=== PATIENT | female | born 1960 | race Caucasian/White ===

== ENCOUNTER 2017-04-13 10:02 | Inpatient (IN) | payer OTHER ==
[~2017-04-13] VITALS: Ht 152.4 cm; Wt 84.4 kg
[2017-04-13 10:18] VITALS: BP 114/37
[2017-04-13] MEDS ORDERED: CAPTOPRIL5 GM PO (11:26)
[2017-04-13] MEDS ORDERED: LASIX 10 MG/10 MG/M1 PO (11:27)
[2017-04-13] MEDS ORDERED: TOPROL XL100 MG PO (11:27)
[2017-04-13] MEDS ORDERED: NORVASC2.5 MG PO (11:27)
[2017-04-13] MEDS ORDERED: ACCUNEB SO1.25 MG/1 INH (11:27)
[2017-04-13] MEDS ORDERED: KLOR-CON 1010 MEQ PO (11:28)
[2017-04-13] MEDS ORDERED: FLOVENT HFA 4444 MCG INH (11:28)
[2017-04-13] MEDS ORDERED: ASPIRIN81 M2 PO (11:28)
[2017-04-13 11:48] LABS: BE -1.9 mmol/L (-2 to +3); HCO3 23.3 mmol/L (22.0-26.0); PCO2 41.4 mmHg (35.0-45.0); PO2 75.2 mmHg (75.0-100.0); pH 7.368 (7.340-7.450)
[2017-04-13 12:39] LABS: ABSOLUTE EOSINOPHILS 0.2 thou/uL (0.0-0.7); ABSOLUTE LYMPHOCYTES 0.5 thou/uL (0.8-5.3); ABSOLUTE MONOCYTES 0.3 thou/uL (0.0-1.2); ABSOLUTE NEUTROPHILS 2.9 thou/uL (1.6-8.1); BASOPHILS 0.5 %; EOSINOPHILS 4.4 %; HEMATOCRIT 42.9 % (37.0-47.0); HEMOGLOBIN 14.2 gm/dL (12.0-15.0); LYMPHOCYTES 12.4 %; MCH 27.9 pg (26.0-34.0); MCHC 33.1 g/dL (28.0-37.0); MCV 84.4 fL (80.0-100.0); MONOCYTES 8.5 %; MPV 9.1 fl. (7.2-11.1); NUCLEATED RBCS 0 /100WBC; PLATELET COUNT* 104 thou/uL (150-400); POLYS 74.2 %; RBC 5.08 mil/uL (4.20-5.00); WBC 3.9 thou/uL (4.0-11.0)
[2017-04-13 13:05] LABS: ANION GAP 5 mmol/L (7-16); BUN 15 mg/dL (7-18); CALCIUM 9.4 mg/dL (8.5-10.1); CHLORIDE 104 mmol/L (98-107); CO2 29 mmol/L (21-32); CREATININE 1.2 mg/dL (0.6-1.3); GLUCOSE 90 mg/dL (70-99); POTASSIUM 3.7 mmol/L (3.5-5.1); SODIUM 138 mmol/L (136-145)
[2017-04-13 13:16] LABS: ALBUMIN 3.9 g/dL (3.4-5.0); ALKALINE PHOSPHATASE 171 U/L (46-116); NT-PRO BRAIN NAT PEPTIDE 159 pg/mL (<300); SGOT 24 U/L (15-37); SGPT 37 U/L (30-65); TOTAL BILIRUBIN 1.1 mg/dL (<0.1-1.0); TOTAL PROTEIN 7.3 g/dL (6.4-8.2); TROPONIN-I LEVEL <0.06 ng/mL (<0.06)
[2017-04-13 13:17] LABS: URINE BILIRUBIN NEGATIVE (Negative); URINE BLOOD TRACE (Negative); URINE CLARITY CLEAR; URINE COLOR YELLOW; URINE GLUCOSE-RANDOM NEGATIVE (Negative); URINE KETONES NEGATIVE (Negative); URINE LEUKOCYTES-REFLEX TRACE (Negative); URINE NITRITE-REFLEX NEGATIVE (Negative); URINE PROTEIN NEGATIVE (Negative); URINE UROBILINOGEN 0.2 E.U./dl (0.2-1.0)
[2017-04-13 13:36] LABS: URINE WBC-REFLEX 0-5 Rare /HPF (0-5)
[2017-04-13 13:37] LABS: URINE RBC None Seen /HPF (0-2)
[2017-04-13 13:38] LABS: SQUAMOUS 4-10 Moderate /LPF (0-3)
[2017-04-13 13:39] LABS: BACTERIA-REFLEX None Seen /HPF (None Seen); MUCUS 0-3 Light strn/LPF (None Seen)
[2017-04-13 13:40] LABS: CASTS None Seen /LPF (None Seen); CRYSTALS None Seen /LPF (None Seen)
[2017-04-13 16:01] LABS: APTT 26.3 Seconds (25.0-31.3)
--- NOTE | 2017-04-13 16:14 | NUR ---
PT CARE BEING TAKEN OVER BY STOREKEEPER STEWARD FOR DRAINAGE OF PLEURAL EFFUSION.
[2017-04-13 17:43] LABS: BF RBC 3560 /mm3; TOTAL CELL COUNT 675 /mm3
[2017-04-13 17:46] LABS: CLARITY SLIGHTLY HAZY; COLOR BROWN; TOTAL VOLUME 1865 ml
[2017-04-13 18:43] VITALS: BP 137/78
[2017-04-13 18:52] LABS: BF POLYS 7 %; SOURCE THORACENTESIS
[2017-04-13 18:53] LABS: BF LYMPHOCYTES 91 %; BF MONOCYTES 2 %
--- NOTE | 2017-04-13 19:00 | NUR ---
PT. ARRIVED ON UNIT AFTER RECEIVING REPORT FROM [employer]ING GENERAL SUPERINTENDENT. PT. A/OX4, VSS, MONITOR PLACED. PT ORIENTED TO ROOM/CALL LIGHT. PT. HAS NOT EATEN TODAY, BOX LUNCH GIVEN. FAMILY AT BEDSIDE. REPORT GIVEN TO BRENDA ANTONY TO COMPLETE ADMISSION PROCESS.
[2017-04-13 20:00] VITALS: BP 127/73
[2017-04-13 20:05] VITALS: BP 138/75
[2017-04-13] MEDS ORDERED: TRAMADOL 50 MG50 MG PO (21:57)
[2017-04-14 00:03] VITALS: BP 116/74
[2017-04-14 04:11] VITALS: BP 143/78
--- NOTE | 2017-04-14 05:18 | NUR ---
ASSUMED PT CARE AT 1930, PT IS A&OX4, PT HAD A THORACENTESIS IN ER, TO THE RIGHT SIDE, DRESSING IS CDI. PT IS TRACING NSR ON THE MONITOR, ON 2L NC SATTING MID TO HIGH 90'S. PT DENIES ANY PAIN OR NEEDS AT THIS TIME. ADMISSION ASSESSMENT COMPLETED CHARTED, HOME MEDICATIONS RESTARTED. PT IS RESTING AT THIS TIME. PRIOR TO ADMISSION PT HAD FALLEN AND NOW HAS A T 11 COMPRESSION FRACTURE, BED IN LOW POSITION, CALL LIGHT IN REACH, BED ALARM ON, YELLOW ARM BAND AND SOCKS IN PLACE, HOURLY ROUNDING COMPLETED FOR PT SAFETY.
[2017-04-14 08:00] VITALS: BP 117/64
--- NOTE | 2017-04-14 09:02 | NUR ---
ASSUMED PT. CARE AND RECEIVED RPEORT AT 0730. PT A/OX4, VSS, MONITOR ON TRACING SR. PT. ON 2L NC @ 96%. PT. STATES SHE "FEELS LIKE THERE IS RATTLING" IN HER LUNGS STILL. FULL ASSESSMENT COMPLETED, REFER TO CHARTING. REPORTS PAIN TO BACK 05/04. PT. FULL ASSESSMENT COMPLETED, REFER TO CHARTING. PT. SITTING UP IN BED, READY TO EAT BREAKFAST. CALL LIGHT IN REACH, WILL CONTINUE WITH PLAN OF CARE.
[2017-04-14 12:34] VITALS: BP 106/55
--- NOTE | 2017-04-14 19:05 | NUR ---
PT. STABLE THROUGH OUT SHIFT. TREATED FOR PAIN X 2 WITH TRAMADOL, TOLERATED WELL WITH GOOD RELIEF. PT. ABLE TO AMBULATE AND SHOWER INDEPENDENTLY TODAY, STEADY ON FEET. O2 REMOVED PER PT. REQUEST. HOURLY ROUNDING COMPLETED THROUGH OUT THE DAY FOR PT. SAFETY.
[2017-04-14 20:00] VITALS: BP 101/48
[2017-04-15] VITALS: BP 106/52
[2017-04-15 04:00] VITALS: BP 103/45
--- NOTE | 2017-04-15 04:30 | NUR ---
ASSUMED PT CARE AT 1930, PT IS A&OX4, PT IS TRACING NSR ON THE MONITOR, ON 2L NC SATTING MID TO LOW 90'S. PT DENIES ANY PAIN OR NEEDS AT THIS TIME. PT IS UP STB TO THE BR. PT SLEPT THROUGHOUT THE NIGHT. BED IN LOW POSITION, CALL LIGHT IN REACH, BED ALARM ON, YELLOW ARM ABND AND SOCKS IN PLACE, HOURLY ROUNDING COMPLETED FOR PT SAFETY.
[2017-04-15 08:00] VITALS: BP 96/48
[2017-04-15 09:07] LABS: BODY FLUID AMYLASE 88 U/L (()); BODY FLUID LDH 112 IU/L (()); BODY FLUID PROTEIN 4.7 g/dL (())
[2017-04-15 10:27] LABS: SOURCE THORACENTESIS
--- NOTE | 2017-04-15 10:27 | NUR ---
ASSUMED CARE OF PT AT 0730 AND RECIEVED REPORT FROM BRENDA. PT A/OX4, VITAL SIGNS STABLE. SINUS RHYTHM ON MONITOR. PT ON 2L NASAL CANNULA @ 93%. FULL ASSESSMENT COMPLETED. PT GOALS DISCUSSED TO GET UP IN CHAIR. PT LEFT SITTING IN BED WITH CALL LIGHT AND PERSONAL BELONGINGS IN REACH. RESPIRATORY THERAPY D/C O2. IV D/C DUE TO INFILTRATION.
[2017-04-15 11:15] VITALS: BP 106/56
[2017-04-15 11:44] LABS: HEMATOCRIT 38.3 % (37.0-47.0); HEMOGLOBIN 12.8 gm/dL (12.0-15.0); MCH 28.4 pg (26.0-34.0); MCHC 33.4 g/dL (28.0-37.0); MCV 85.1 fL (80.0-100.0); MPV 9.1 fl. (7.2-11.1); NUCLEATED RBCS 0 /100WBC; PLATELET COUNT* 109 thou/uL (150-400); RDW-CV 15.1 % (10.5-14.5); WBC 3.7 thou/uL (4.0-11.0)
[2017-04-15 11:57] LABS: ABSOLUTE EOSINOPHILS 0.3 thou/uL (0.0-0.7); ABSOLUTE LYMPHOCYTES 0.3 thou/uL (0.8-5.3); ABSOLUTE MONOCYTES 0.2 thou/uL (0.0-1.2); ABSOLUTE NEUTROPHILS 2.9 thou/uL (1.6-8.1); ANISOCYTOSIS 1+; PLATELET ESTIMATE DECREASED
[2017-04-15 13:08] LABS: BODY FLUID PH 7.8 (Not Estab.)
[2017-04-15 15:35] VITALS: BP 96/55
[2017-04-15 15:43] VITALS: BP 96/55
--- NOTE | 2017-04-15 16:03 | NUR ---
SPOKE WITH PT.AND . HER FATHER WAS THERE ALSO. SHE SAID SHE DID NOT FEEL SHE WOULD HAVE ANY DISCHARGE NEEDS. SHE LIVES WITH HER . SHE IS INDEPENDENT AND ACTIVE. SHE USES NO DME. NO HX OF SNF OR HH. CM WILL FOLLOW FOR ANY DISCHARGE NEEDS.
--- NOTE | 2017-04-15 16:59 | NUR ---
PT OK FOR DISCHARGE FROM ALL CONSULTS AFTER REST AND EXCERCISE ON RA. PT O2 SATURATION WAS 92% DURING REST AND EXCERCISE. PT RECIEVED PAIN MEDICATION BEFORE LEAVING. PT DISCHARGE PAPERWORK GONE OVER AND PT LEFT WITH ALL BELONGIINGS AND .
--- NOTE | 2017-04-16 10:56 | CON ---
[address] [address] CONSULTATION Name: MARLON SERRANO Room: [address] IN M.R.#: [id number] Admission: 04/13/17 Attend Phys: Bear Staley, Discharge: 04/15/17 Date of : 56 Report #: [id number] THIS REPORT FOR: //name// CC: Elisa Staley DATE OF SERVICE: 04/14/2017 CHIEF COMPLAINT: Pleural effusion. HISTORY OF PRESENT ILLNESS: The patient is a 56-year-old female who is a lifelong nonsmoker. She does not have or admit to any respiratory problems or disorders. She gives me history stating that 1 week ago today, she slipped and fell outside of her home on a concrete slab. She developed pain in her lower back. She went to the doctor on of this past week. X-rays of her lumbar spine were performed at [facility]. Because of a fluid being present on the left side, she underwent a chest x-ray. She was advised to come to the Emergency Room, which she did on Saturday. She was admitted to the hospital. Yesterday, she underwent a thoracentesis. Approximately, 1600 mL of pleural fluid removed from the pleural space. The fluid was sent for chemistry evaluation and cell count. According to the patient, she had been noticing some shortness of breath, dating back to 01/2017. She thought maybe it was related to an upper respiratory infection. Unfortunately, she continued to have shortness of breath. She had not noticed any other symptomatology other than shortness of breath, especially when it was real cold with temperatures below 30 degrees or so. In addition, she had had exertional short windedness. She was given an inhaler at one point, but she did not notice or feel any relief from that inhaler device. According to the patient, she has not had any abdominal bloating, fullness. She denies pain in her abdomen or chest. She denies headache, blurred vision, numbness, tingling. She denies calf tenderness. She has not had any swelling, nausea, vomiting. ALLERGIES: SHE IS ALLERGIC TO PENICILLIN. FAMILY HISTORY: Positive for breast cancer in her grandmother as well as her mother. The patient does get routine mammograms. She has not had a colonoscopy. SOCIAL HISTORY: [place] [address] CONSULTATION Name: MARLON SERRANO Room: [address]#: [id number] Admission: 04/13/17 Attend Phys: Bear Staley, Discharge: 04/15/17 Date of : 56 Report #: [id number] PAST MEDICAL HISTORY: Significant for hypertension. REVIEW OF SYSTEMS: System review negative other than what is outlined above. CURRENT MEDICATIONS: Lisinopril, Lasix, aspirin, amlodipine, tramadol, Flonase nasal spray, Lovenox, captopril. PHYSICAL EXAMINATION: VITAL SIGNS: Blood pressure 143/78, respiratory rate 18, nonlabored, pulse rate 85, regular, temperature 98.4 degrees. Her weight 181 pounds. GENERAL APPEARANCE: Awake, alert. She is oriented. HEENT: Head atraumatic. EYES: Pupils are round, equal, reactive. Sclerae and conjunctivae are clear. Extraocular muscles intact. NOSE: Nasal passages are patent. SKIN: Surface is normal without abnormalities. There is no deviation noted. EARS: No drainage from the auditory canals. Structures appear normal, otherwise. NECK: No adenopathy or JVD. CHEST: Dullness in the right base. Diminished breath sounds in the right base, otherwise breath sounds are clear and symmetrical. CARDIOVASCULAR: Regular rhythm. ABDOMEN: Obese without organomegaly, no tenderness with deep palpation. Inguinal area free of adenopathy. EXTREMITIES: No edema or calf tenderness. There is no evidence of cyanosis or clubbing. SKIN: Warm and dry. No rash. NEUROLOGIC: Moves all 4 extremities spontaneously. Strength equal bilaterally. LABORATORY DATA: Pleural fluid reveals brownish color, red cells 3560. Chemistry is pending. Electrolytes: Sodium 138, potassium 3.7, chloride 104, CO2 29, BUN 15, creatinine 1.2. Total bilirubin 1.1. Liver enzymes are normal. ProBNP 159 on admission. Troponins are less than 0.06. INR 1.0. Hemoglobin and hematocrit are 14 and 43 with a white count of 3900, platelet count 104,000. Arterial blood gas on room air, pH 7.37, pCO2 41, pO2 75, bicarbonate 23. MEDICAL IMAGING STUDIES: CTA of the chest performed on 04/13/2017 was interpreted showing large right pleural effusion, partial collapse left lower lobe. There was no evidence of mediastinal or hilar adenopathy. No adenopathy in the axilla. Pulmonary arteries were free of filling defects. Upper abdomen demonstrated retroperitoneal adenopathy with numerous enlarged lymph nodes, spleen measures 15.2 cm in length. IMPRESSION: 1. Pleural effusion, probably exudative in nature. 2. Abnormal CT of the chest, specifically of the [place] [address] CONSULTATION Name: MARLON SERRANO Room: [address] IN [facility]#: [id number] Admission: 04/13/17 Attend Phys: Bear Staley, Discharge: 04/15/17 Date of : 56 Report #: [id number] splenomegaly and retroperitoneal adenopathy. 3. Recent fall. RECOMMENDATION: The patient has already undergone a thoracentesis. We will ask lab whether they have enough fluid to proceed with cytology evaluation and flow cytometry. Discussed with the patient the above findings. We will go ahead and obtain a CT of the abdomen and pelvis. Follow up chest x-ray will be obtained as well, mainly to determine if there is any significant residual fluid present on the right side. ADDENDUM: The lymphadenopathy, splenomegaly, pleural effusion could reflect an underlying malignant process from a lymphatic standpoint. <ELECTRONICALLY SIGNED> By: Johan Norman MD 04/16/17 1056 [id number] Valdez MD /nt
--- NOTE | 2017-05-02 13:10 | CNG ---
[address] [address] CYTO-NONGYN REPORT PROCEDURE Name: MARLON LANCE Room: [address]#: [id number] Admission: 04/13/17 Date of : 56 Discharge: 04/15/17 Report #: [id number] Path Case #: [id number] CYTOPATHOLOGY REPORT COLLECTION DATE: 04/13/2017 RECEIVED DATE: 04/15/2017 SUBMITTING PHYS: Dr. Jack Norwood OTHER PHYS: Dr. Elisa Staley CLINICAL HISTORY: Pleural effusion with shortness of air SPECIMEN(S) RECEIVED: A.Pleural fluid, Right * * * * * * * * * * * * FINAL DIAGNOSIS: A. Pleural fluid, Right: - No overt malignant cells identified. Few mesothelial cells and small, mature-appearing lymphocytes are present. See comment. COMMENT: At the request of Dr. Lorie Stahl, flow cytometry is pending on a sample of the pleural fluid because of a clinical suspicion of lymphoma, the results of which will be the subject of an addendum report. (FRANCIS:estevan; 04/17/2017) PATHOLOGIST: Byron Ortiz M.D. REPORT ELECTRONICALLY SIGNED BY: Byron Ortiz M.D. DATE/TIME: 04/17/2017 16:32 * * * * * * * * * * * * GROSS PATHOLOGY: A. Pleural fluid, Right: The specimen is submitted unfixed, labeled "Marlon Lance". Received by the Cytology Department is 58 mL of cloudy yellow fluid. One ThinPrep slide and a formalin fixed cell block were prepared. Specimen sent for flow cytometry. (mm 04.15.2017) FREIGHT SHIPPING AGENT(S): KENNY Tong(ASCP) INITIAL CPT CODE(S): A; 67668, 43975 Professional services performed [place] [facility] [place] [address] Technical services performed by [facility] at [address] [place] [address] CYTO-NONGYN REPORT PROCEDURE Name: MARLON LANCE Room: [address]#: [id number] Admission: 04/13/17 Date of : 56 Discharge: 04/15/17 Report #: [id number] Path Case #: [id number] [place] [address]. PROCEDURE REPORT (Order Date: 04/16/2017 00:00) COMMENT: Special studies report received from [facility], [address] [place] [address], [address], [place], [address], on case [id number], labeled with their number [id number], dated 04/16/2017. Flow Cytometry: Hematologic Neoplasia Assessment Clinical History Pleural effusion Indication for Study Evaluation for hematolymphoid neoplasia Specimen Fluid, Right Pleural Effusion Viability 9% (7AAD exclusion) Interpretation Fluid, Right Pleural Effusion: - No definitive immunophenotypic evidence of non-Hodgkin lymphoma in a sample with markedly decreased viability (9%). See comment. - Inverted T cells CD4:CD8 ratio. Comments This sample is less than 50% viable which is considered suboptimal for routine clinical flow cytometry analysis. The analysis, however, is being reported because the sample is considered irreplaceable. These results must be interpreted in the context of all available clinical, laboratory, and morphologic information. Populations Analyzed Lymphocytes: 5% B-cells: 0.4%, polytypic/polyclonal sIg light chain pattern T-cells: no significant abnormalities of the markers tested CD4:CD8: 0.0 (inverted) NK cells: 0.7% CD45 Negative 95% No significant reactivity with the markers tested (may represent Events/Debris: non-hematolymphoid cells, degenerated cells, debris, unlysed red blood cells, etc.) Morphologic Evaluation A slide was reviewed for quality assurance inspector purposes only. Specimen Description Total Cell Yield: 0.86 X 10^6 Reagent(s) Used CD2, CD3, CD4, CD5, CD7, CD8, CD10, CD11b, CD19, CD20, CD23, CD30, CD38, CD43, CD45, CD56, CD57, FMC-7, HLA-DR, kappa, lambda at [employer], [employer] [address] CYTO-NONGYN REPORT PROCEDURE Name: MARLON LANCE Room: [address] IN [facility].#: [id number] Admission: 04/13/17 Date of : 56 Discharge: 04/15/17 Report #: [id number] Path Case #: [id number] Pathologist Intended Use Flow cytometry is optimally used to immunophenotypically characterize abnormal populations when they are detected. Negative flow cytometry results do not exclude lymphoma or neoplasia. Possible false negative flow cytometry results may occur in, but are not limited to, the following: neoplastic cells in Hodgkin lymphoma are not typically adequately represented by routine clinical flow cytometry; neoplastic cells may be lost or inadequately represented due to degeneration, sample processing, sampling artifact, or patchy involvement; plasma cells are typically underrepresented by flow cytometry; immature cells/blasts may be underrepresented due to hemodilution; myeloproliferative disorders and low grade myelodysplasia may not have immunophenotypic abnormalities or increased blasts. Correlation with all available clinical, laboratory, and morphologic data is always necessary to assess for the possibility of false negative flow cytometry results and to establish a diagnosis. Each marker in this analysis was used to assess for potential antigenic abnormalities or to evaluate detected abnormalities. Disclaimer(s) This test was performed at [facility] at [address], [place], [address] - Practice Physician: Johny Harris MD. [facility] is a business unit of [facility] a wholly-owned subsidiary of [employer]. Any image or images that accompany this report are used equipment sales representative images only and should not be used to render a diagnosis. This test was developed and its performance characteristics determined by [facility]. It has not been cleared or approved by the Food and Drug Administration (FDA). The FDA has determined that such clearance or approval is not necessary. For inquiries, the physician may contact Lab: [phone] A complete copy of the report is on file. Professional services performed by [facility] at [address], [place] [address]. Technical services performed by [facility] at [address], [place] [address]. (AMJ 04/17/2017) PATHOLOGIST: Sakina Dennis M.D. REPORT ELECTRONICALLY SIGNED BY: Sakina Dennis M.D. DATE/TIME: 05/02/2017 13:10 [facility] [address] [facility], [address] [place] [address] PHONE: [phone] DIRECTOR: Frankie Perez M.D. * * * END OF REPORT * * *
== END 2017-04-15 16:30 | disposition home or self-care (01) | DRG 186 ==
LOC: M.ERS 10:02 → M.TBA-ER 15:40 → M.2W 15:40
PROVIDERS: Personal Emergency Response Attendant; ADMIT Family Medicine
PROC: 0W993ZZ Drainage of Right Pleural Cavity, Percutaneous Approach (ICD-10-PCS; principal; 2017-04-13)
DX: J90 Pleural effusion, not elsewhere classified (principal); J96.91 Respiratory failure, unspecified with hypoxia; J98.11 Atelectasis; R16.1 Splenomegaly, not elsewhere classified; R59.9 Enlarged lymph nodes, unspecified; I10 Essential (primary) hypertension; J45.909 Unspecified asthma, uncomplicated; Z88.0 Allergy status to penicillin; Z88.8 Allergy status to other drugs, medicaments and biological substances; Z90.49 Acquired absence of other specified parts of digestive tract; Z79.51 Long term (current) use of inhaled steroids; Z79.82 Long term (current) use of aspirin; Z79.899 Other long term (current) drug therapy

== ENCOUNTER 2017-07-05 07:49 | Outpatient (CLI) | payer OTHER ==
[~2017-07-05] VITALS: Ht 152.4 cm; Wt 81.2 kg
[~2017-07-05 07:49] MED LIST: ACCUNEB SO1.25 MG/1 INH; ASPIRIN81 M2 PO; CAPTOPRIL5 GM PO; FLOVENT HFA 4444 MCG INH; KLOR-CON 1010 MEQ PO; LASIX 10 MG/10 MG/M1 PO; NORVASC2.5 MG PO; TOPROL XL100 MG PO; TRAMADOL 50 MG50 MG PO
[2017-07-05 08:54] VITALS: BP 117/63
[2017-07-05 08:59] LABS: HEMATOCRIT 38.6 % (37.0-47.0); HEMOGLOBIN 12.8 gm/dL (12.0-15.0); MCH 29.3 pg (26.0-34.0); MCHC 33.2 g/dL (28.0-37.0); MCV 88.3 fL (80.0-100.0); MPV 8.6 fl. (7.2-11.1); RBC 4.37 mil/uL (4.20-5.00); RDW-CV 16.6 % (10.5-14.5); WBC 3.3 thou/uL (4.0-11.0)
[2017-07-05 09:11] LABS: ANION GAP 7 mmol/L (7-16); BUN 14 mg/dL (7-18); CHLORIDE 104 mmol/L (98-107); CO2 26 mmol/L (21-32); CREATININE 1.2 mg/dL (0.6-1.3); GLUCOSE 107 mg/dL (70-99); POTASSIUM 3.8 mmol/L (3.5-5.1); SODIUM 137 mmol/L (136-145)
[2017-07-05 09:12] LABS: APTT 25.7 Seconds (25.0-31.3)
[2017-07-05 09:17] LABS: ALBUMIN 3.6 g/dL (3.4-5.0); ALKALINE PHOSPHATASE 137 U/L (46-116); CHOLESTEROL 203 mg/dL (<200); HDL CHOLESTEROL 30 mg/dL (>40); LDL CHOLESTEROL 149 mg/dL (<100); SGOT 20 U/L (15-37); SGPT 31 U/L (30-65); TC:HDL 6.8 Ratio (Not establshd); TOTAL BILIRUBIN 0.5 mg/dL (<0.1-1.0); TOTAL PROTEIN 6.8 g/dL (6.4-8.2); TRIGLYCERIDE 122 mg/dL (<150); VLDL 24 mg/dL (<40)
[2017-07-05 09:18] LABS: SERUM ASSESSMENT Clear
--- NOTE | 2017-07-05 16:20 | CARD ---
[address] [address] CARDIAC CATH REPORT Name: MARLON SERRANO [address]: [address] [id number] Admission: 07/05/17 Attend Phys: Ruel Dennison MD, Discharge: Date of : 56 Report #: [id number] THIS REPORT FOR: //name// APPROVED REPORT Study performed: 07/05/2017 10:25:24 Patient Details Patient Status: OP Room #: The patient is a 56 year-old female Event Personnel Ruel Dennison Corporate Representative, Liz Campbell RN RN, Jack Soliz Monitor, Johan Wadsworth (R) Sharynub, Leida Flanagan RTR Monitor Procedures Performed Art Access - R femoral artery* Left Heart Cath w/LT VGram [id number] LHCLV Hemostasis w/ Mynx Indication Dyspnea, Positive stress test Procedure Narrative The patient was brought electively to the Cardiac Catheterization Laboratory and was prepped and draped in a sterile manner. The right femoral was infiltrated with 1% Lidocaine subcutaneous anesthesia. A [place] 6 FR sheath was inserted into the right femoral artery. Coronary angiography was performed using coronary diagnostic catheters. The right coronary system was accessed and visualized with a 6FR JR4 catheter. The left coronary system was accessed and visualized with a 6FR JL4 catheter. The left ventricle was accessed and visualized with a 6FR Pigtail catheter. Left ventricular/Aortic Valve gradient assessed via catheter pullback. Left ventriculogram was performed in [place] projection. Pre-demployment femoral angiogram was performed . Closure device was deployed with a 6 Fr MynxGrip 6/7F. The patient tolerated the procedure well and there were no complications associated with the procedure. There was no hematoma. Intraoperative Conscious Sedation Sedation start time: 10:55 Case end Time: 11:16 Fentanyl 50 mcg Versed 2 [place] [address] CARDIAC CATH REPORT Name: MARLON SERRANO Room: [address] [id number] Admission: 07/05/17 Attend Phys: Ruel Dennison MD, Discharge: Date of : 56 Report #: [id number] Fluoro Time: 2.1 minutes Dose: DAP 39504 cGycm2 503.52 mGy Contrast Type and Amount: Visipaque 160 ml Coronary Angiography The patient's coronary anatomy is right dominant. Diagnostic Cath Left Main 0% narrowing LAD 0% narrowing Circumflex Nondominant vessel with 0% narrowing Right Coronary Dominant vessel with 0% narrowing Hemodynamics The aortic pressure is 123/64 mmHg with a mean of 60 mmHg. The left ventricular pressure is 117/7 mmHg with a mean of mmHg. The left ventricular end diastolic pressure is 17 mmHg. Conclusion #1 normal coronary arteries #2 normal left ventricular systolic function, estimated ejection fraction being 60% #3 normal left-sided hemodynamics study <ELECTRONICALLY SIGNED> By: Ruel Dennison MD, FACC 07/05/171619 19 19Ruel Dennison MD, FAC /INF
--- NOTE | 2017-07-06 13:06 | EKG ---
[place] [address] ELECTROCARDIOGRAM REPORT Name: MARLON SERRANO Room: [employer]#: [id number] Admission: 07/05/17 Attend Phys: Ruel Dennison MD, Discharge: 07/06/17 Date of : 56 Report #: [id number] THIS REPORT FOR: //name// [facility] Test Date: 2017-07-05 Test Time: 09:14:08 Pat Name: MARLON SERRANO Department: Room: Gender: Film Critic: : 1960 Requested By: Ruel Dennison Order Number: [id number] Reading MD: Shad Mcguire Measurements Intervals [place] Rate: 57 P: 48 IL: 172 QRS: 50 QRSD: 93 T: 26 QT: 430 QTc: 419 Interpretive Statements Sinus rhythm Borderline T abnormalities, anterior leads No previous ECG available for comparison Electronically Signed On 07-06-2017 13:05:58 CDT by Shad Mcguire [email or web address] <ELECTRONICALLY SIGNED> By: Shad Mcguire MD, [facility] 07/06/17 1305 3 3 Shad Mcguire MD, [facility] /EPI
--- NOTE | 2017-07-08 16:06 | NUR ---
Attempted to follow up on patient post heart cath, no answer per phone, left message with return phone #.
--- NOTE | 2017-07-29 13:25 | H ---
[place] [address] HISTORY AND PHYSICAL Name: MARLON [facility]ERRANO [id number] Admission: 07/05/17 Attend Phys: Ruel Dennison MD, Discharge: 07/06/17 Date of : 56 Report #: [id number] THIS REPORT FOR: //name// CC: Ruel Mcwilliams DATE OF SERVICE: 07/05/2017 HISTORY OF PRESENT ILLNESS: The patient is a 56-year-old female who was previously in the hospital with respiratory insufficiency with a pleural effusion. She was noted to have moderate LV dysfunction on echocardiogram. She has been on the Lasix. The patient also had a nuclear stress test, which suggested inducible anterior ischemia. PAST MEDICAL HISTORY: Remarkable for obstructive airways disease, hypertension and pleural effusion. PHYSICAL EXAMINATION: GENERAL: Demonstrates a modestly overweight middle-aged female. VITAL SIGNS: Blood pressure is 105/60, pulse rate 64 and respirations 18 per minute. Weight 184 pounds. NECK: Jugular venous pressure is normal. CHEST EXAMINATION: Clear. CARDIAC EXAMINATION: Reveals normal first and second heart sounds, without murmurs or gallops. ABDOMEN: Modestly obese. EXTREMITIES: Without edema, with intact peripheral pulses. IMPRESSION: 1. Cardiomyopathy. 2. Abnormal nuclear stress test. 3. Hypertension. 4. Recurrent pleural effusion. PLAN: Given the aforementioned scenario, after discussion with Dr. Mcguire, we will plan cardiac catheterization to document the presence or absence of significant underlying coronary artery disease. This is scheduled for 07/05/2017. <ELECTRONICALLY SIGNED> By: Ruel Dennison MD, FACC 07/29/17 1325 1114 [id number] Dennison MD, FACC /nt
== END 2017-07-06 08:06 | disposition home or self-care (01) ==
LOC: M.TBA-CV 07:49 → M.CL 07:49 → M.TBA-CV 11:29 → M.CL 07-06 08:06
PROVIDERS: Internal Medicine
DX: R94.39 Abnormal result of other cardiovascular function study (principal); I10 Essential (primary) hypertension; Z90.49 Acquired absence of other specified parts of digestive tract; Z98.890 Other specified postprocedural states; Z88.0 Allergy status to penicillin; Z79.899 Other long term (current) drug therapy; Z79.82 Long term (current) use of aspirin; Z79.01 Long term (current) use of anticoagulants